=== PATIENT | female | born 1995 | race Caucasian/White ===

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

== ENCOUNTER 2017-02-04 19:48 | Emergency (ER) | payer OTHER ==
--- NOTE | 2017-02-04 20:15 | CPEKG ---
Heart Rate: 78 RR Interval: 769 P-R Interval: 160 QRSD Interval: 78 QT Interval: 368 QTC Interval: 420 P [place]: 8 QRS [place]: 70 T Wave [place]: 34 EKG Severity - NORMAL ECG - EKG Impression: SINUS RHYTHM Electronically Signed By: Mick Almonte 04-Feb-2017 23:42:29
--- NOTE | 2017-02-04 21:02 | EDPHY ---
H & P Stated Complaint: jaw, throat and chest pain x 1 week, nausea and indigestion - Personal History LMP (Females 10-55): 15-21 Days Ago Current Tetanus/Diphtheria Vaccine: No - Medical/Surgical History Hx Asthma: No Hx Chronic Respiratory Disease: No Hx Diabetes: No Hx Cardiac Disease: No Hx Renal Disease: No Hx Cirrhosis: No Hx Alcoholism: No Hx HIV/AIDS: No Hx Splenectomy or Spleen Trauma: No Other PMH: PSHx: denies. PMHx: ovarian cyst - Social History Smoking Status: Never smoked Time Seen by Provider: 02/04/17 20:51 HPI/ROS: CHIEF COMPLAINT: Chest pain, dyspnea, resolved HISTORY OF PRESENT ILLNESS: 21-year-old female generally healthy complaining of 1 week of left TMJ pain, bruxism, reproducible with palpation. Today while in class at 3:00 p.m. she was seated, developed midsternal chest pain, dyspnea, anxiety. Notes prior history of anxiety. Currently denies chest pain or dyspnea. She is concerned given her jaw pain and chest pain about cardiac etiology. She denies: Illicit drug use, cocaine use, cigarette use, oral contraceptive use, family history of coagulopathy, family history of premature coronary artery disease PRIMARY CARE PROVIDER: Rounds REVIEW OF SYSTEMS: A ten point review of systems was performed and is negative with the exception of the items mentioned in the HPI PAST MEDICAL & SURGICAL HISTORY: No pertinent medical or surgical history. SOCIAL HISTORY: nonsmoker. No drug use. No alcohol use FAMILY HISTORY: No a family history of premature coronary artery disease or coagulopathy. PHYSICAL EXAM (Prior to examination, patient consented to physical exam, hands were washed and my usual and customary physical exam procedures followed) 1) GENERAL: Well-developed, well-nourished, alert and oriented. Appears to be in no acute distress. 2) HEAD: Normocephalic, atraumatic 3) HEENT: Pupils equal, round, reactive to light bilaterally. Sclera anicteric. Nasopharynx, oropharynx, clear, no lesions. Ears bilaterally with normal tympanic membranes. 4) NECK: Full range of motion, no meningeal signs. Negative carotid bruit. 5) LUNGS: Clear auscultation bilaterally, no wheezes, no rhonchi, no retractions. 6) HEART: Regular rate and rhythm, no murmur, no heave, no gallop. 7) ABDOMEN: No guarding, no rebound, no focal tenderness, negative McBurney's, negative Cisneros's, negative Rovsing's, negative peritoneal sign, 8) MUSCULOSKELETAL: Moving all extremities, no focal areas of tenderness, no obvious trauma. No peripheral edema or discoloration. 9) BACK: No CVA tenderness, no midline vertebral tenderness, no fluctuance, no step-off, no obvious trauma, no visual or palpable abnormality. 10) SKIN: No rash, no petechiae. 11) Psychiatric: Patient is oriented X 3, there is no agitation. DIFFERENTIAL DIAGNOSIS: In no particular order, including but not limited to myocardial ischemia, pulmonary embolus, chest wall pain, pleural inflammation and pulmonary infectious causes. (Momo Mari) Constitutional: Initial Vital Signs Temperature (C) 37 C 02/04/17 19:57 Heart Rate 69 02/04/17 19:57 Respiratory Rate 16 02/04/17 19:57 Blood Pressure 124/80 H 02/04/17 19:57 O2 Sat (%) 99 02/04/17 19:57 O2 Delivery Mode Room Air Allergies/Adverse Reactions: No Known Allergies Allergy (Unverified 09/11/16 23:17) Home Medications: Medication Instructions Recorded NK [No Known Home Meds] 09/11/16 Medical Decision Making ED Course/Re-evaluation: 9:30 p.m.: Patient has been re-evaluated with serial exams. I was informed at this time the patient is declining any further interventions. I had recommended to her that we obtain diagnostic studies including, but not limited to, chest x-ray,d-dimer. She initially agreed to these bottles informed this time she is declining these. I believe her to have decision-making capacity. She has been informed that cardiac, pulmonary etiology is not ruled out and she runs the risk of , permanent and chronic disability, need for nursing home care. Verbalized understanding and acceptance of this. She is welcome to return to the emergency department for further evaluation at any point. Otherwise recommend she follow up at [facility] in 1 day. (Momo Mari) I did not see this patient while she was in the emergency department. However her care was discussed with the PA while the patient is in the department. I agree with treatment plan and management (Mick Almonte) Departure - Departure Disposition: Home, Routine, Self-Care Clinical Impression: Chest pain Condition: Good Instructions: Chest Pain (ED) Additional Instructions: You have declined further evaluation for her chest pain. You have been explained that we have limited diagnostic testing at this point and further testing was recommended. You are welcome to return to the emergency department at any point for re-evaluation. Referrals: [facility],. [Clinic] - 1-2 days without fail
[2017-02-04 21:50] VITALS: BP 103/74; PULSE 75; RESP 20; TEMP 98.2; O2SAT 95
== END 2017-02-04 21:50 | disposition home or self-care (01) ==
DX: R07.9 Chest pain, unspecified (principal)

== ENCOUNTER 2018-02-01 02:55 | Emergency (ER) | payer OTHER ==
--- NOTE | 2018-02-01 04:02 | EDPHY ---
H & P Stated Complaint: chest pain, SOB, dizzy Time Seen by Provider: 02/01/18 03:26 HPI/ROS: HPI The patient presents with chest pain and palpitations which have been present for the last 1 week but became worse tonight. Her symptoms are described as a dull pressure like pain in her mid chest which does not radiate. While she was trying to sleep tonight she noticed palpitations in her chest. She does not have any shortness of breath, leg swelling, nausea, vomiting, diaphoresis. She had a similar episode about 1 year ago. She has not been sick recently. She does not have any recent travel, personal or family history of DVT PE.. REVIEW OF SYSTEMS 10 systems were reviewed and negative with the exception of the elements mentioned in the history of present illness. PMHx: Healthy Soc Hx: College student PHYSICAL General Appearance: Alert, no distress Eyes: Pupils equal and round no pallor or injection ENT, Mouth: Mucous membranes moist Respiratory: There are no retractions, lungs are clear to auscultation Cardiovascular: Regular rate and rhythm Gastrointestinal: Abdomen is soft and non-tender, no masses, bowel sounds normal Neurological: A&O, moves all extremities Skin: Warm and dry, no rashes Musculoskeletal: Neck is supple non tender Extremities: symmetrical, full range of motion Psychiatric: Patient is oriented X 3, there is no agitation Source: Patient Exam Limitations: No limitations - Personal History LMP (Females 10-55): 22-28 Days Ago Current Tetanus Diphtheria and Acellular Pertussis (TDAP): Unsure - Medical/Surgical History Hx Asthma: No Hx Chronic Respiratory Disease: No Hx Diabetes: No Hx Cardiac Disease: No Hx Renal Disease: No Hx Cirrhosis: No Hx Alcoholism: No Hx HIV/AIDS: No Hx Splenectomy or Spleen Trauma: No Other PMH: PSHx: denies. PMHx: ovarian cyst - Social History Smoking Status: Never smoked Constitutional: Initial Vital Signs Temperature (C) 36.5 C 02/01/18 02:58 Heart Rate 85 02/01/18 02:58 Respiratory Rate 20 02/01/18 02:58 Blood Pressure 121/86 H 02/01/18 02:58 O2 Sat (%) 97 02/01/18 02:58 O2 Delivery Mode Room Air Allergies/Adverse Reactions: No Known Allergies Allergy (Unverified 02/01/18 02:57) Home Medications: Medication Instructions Recorded Sronyx 0.10-0.02 mg Tablet 02/01/18 Medical Decision Making - Diagnostics EKG Interpretation: EKG: Complete interpretation has been separately recorded in the [employer] archive. Summary impression: Normal sinus rhythm Imaging Results: Chest x-ray two views is unremarkable, interpreted by me, radiology interpretation is pending. 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 On exam, she is well-appearing, vital signs are normal. Chest x-ray and EKG are normal. On my differential are anxiety, GERD, costochondritis. I doubt pulmonary embolism given no shortness of breath or risk factors. I doubt ACS given her young age in normal EK G. I have advised her to work on deep breathing exercises. She can take ibuprofen as needed for any pain. I will refer her to Cardiology as she may be having PACs or PVCs possibly. I have also advised her to follow up at [facility]. Departure - Departure Disposition: Home, Routine, Self-Care Clinical Impression: Chest pain, Palpitations Condition: Good Instructions: Chest Pain (ED), Anxiolysis in Adults (ED) Additional Instructions: I recommend you take ibuprofen 400 mg every 6 hr as needed for chest pain. If your feeling palpitations I would focus on deep breathing exercises or guided imagery. If your palpitations continue, I have given you the follow-up information for Dr. Jimenez of Cardiology. I would also recommend that you follow up at [facility] in 1-2 days if your symptoms continue. Referrals: Wally Jimenez MD [Medical Doctor] - As per Instructions
[2018-02-01 04:08] VITALS: BP 118/65
--- NOTE | 2018-02-01 06:48 | CPEKG ---
Test Reason : OPEN Blood Pressure : / mmHG Vent. Rate : 075 BPM Atrial Rate : 074 BPM P-R Int : 153 ms QRS Dur : 083 ms QT Int : 377 ms P-R-T Axes : 072 068 036 degrees QTc Int : 421 ms Sinus rhythm Confirmed by Lucretia Wright ([id number]) on 02/01/2018 6:47:44 AM Referred By: Confirmed By:Lucretia Wright
== END 2018-02-01 04:07 | disposition home or self-care (01) ==
DX: R07.9 Chest pain, unspecified (principal); R00.2 Palpitations